=== PATIENT | male | born 1950 | race Caucasian/White ===

== ENCOUNTER 2018-07-02 13:11 | Inpatient (IN) | payer BC, OTHER ==
[~2018-07-02] VITALS: Ht 180.3 cm; Wt 112.4 kg
[~2018-07-02 13:11] MED LIST: ALT25 PO; ASPEC325 PO; ATOR-26 PO; CLOP1TAB15 PO; CPR500 PO; METO50TA16 PO; ZYVOX PO
[2018-07-02] MEDS ORDERED: ASPIRIN 81 MG CHEW PO STA (13:48)
[2018-07-02] MEDS ORDERED: NITROGLYCERIN 2% OINTMENT 30GM TUBE EXT ONE (14:00)
--- NOTE | 2018-07-02 14:10 | DIAGNOSTIC IMAGING REPORT ---
CHEST ONE VIEW PORTABLE CLINICAL HISTORY: Chest pain. COMPARISON STUDY: Chest radiograph September 12, 2010. FINDINGS: Lung volumes are at the lower limits of normal. There is no pneumothorax or pleural effusion. Moderate cardiomegaly is noted. There is no evidence for pulmonary edema. IMPRESSION: 1. No acute cardiomegaly findings. 2. Moderate cardiomegaly Electronically signed by: Kishan Yoon M.D. 07/02/2018 2:09 PM Dictated Date/Time: 07/02/2018 2:07 PM
[2018-07-02 14:15] LABS: HEMATOCRIT 43.3 % (42-52); HEMOGLOBIN 15.1 g/dL (14.0-18.0); MEAN CELL VOLUME 91.5 fL (80-100); MEAN CORPUSCULAR HEMOGLOBIN 31.9 pg (25-34); MEAN CORPUSCULAR HGB CONC 34.9 g/dl (32-36); MEAN PLATELET VOLUME 9.9 fL (7.4-10.4); PLATELET COUNT 176 K/uL (130-400); RED CELL DISTRIBUTION WIDTH CV 13.2 % (11.5-14.5); RED CELL DISTRIBUTION WIDTH SD 44.1 fL (36.4-46.3); WHITE BLOOD COUNT 6.58 K/uL (4.8-10.8)
[2018-07-02 14:19] LABS: PTT PATIENT 25.2 SECONDS (21.0-31.0)
[2018-07-02 14:32] LABS: ALBUMIN 3.6 gm/dl (3.4-5.0); ALKALINE PHOSPHATASE 79 U/L (45-117); ALT/SGPT 68 U/L (12-78); AST/SGOT 35 U/L (15-37); BLOOD UREA NITROGEN 19 mg/dl (7-18); CALCIUM 8.4 mg/dl (8.5-10.1); CARBON DIOXIDE 24 mmol/L (21-32); CREATININE 1.18 mg/dl (0.60-1.40); GLUCOSE 110 mg/dl (70-99); SODIUM 140 mmol/L (136-145); TOTAL PROTEIN 6.7 gm/dl (6.4-8.2)
--- NOTE | 2018-07-02 14:33 | EMERGENCY ROOM VISIT NOTE ---
History Report prepared by [place]: Corky Nava Under the Supervision of: Dr. Jose Thakur M.D. First contact with patient: 13:46 Chief Complaint: CHEST PAIN Stated Complaint: CHEST PAINS STARTED YESTERDAY History of Present Illness The patient is a 67 year old male who presents to the Emergency Room with complaints of resolved chest pressure/pain. The patient states that in April, around 2 months ago, he had 2 of his coronary stents opened. The third was felt okay. He has been doing well up until yesterday when he had some exertional chest pain a few times. The pain did resolve with rest. Today, about 1.5 hours ago, he was walking and developed pressure in his chest that was a 6/10. He felt pain down both arms. He was mildly short of breath, no sweating or nausea. He rested and about 15-20 minutes, the pain subsided. He did not use nitroglycerin. He presents to the ER for evaluation. He is now pain free. The patient has not had cough or congestion. He has been in baseline health up until yesterday. No urinary complaints, no diarrhea or vomiting. He does take aspirin and Brilinta. Of note, the patient did have a stress test about a week ago, he did well. Source of History: patient Onset: about 1.5 hours ago Position: chest Symptom Intensity: 6/10 at onset Quality: pressure Timing: resolved Modifying Factors (Relieving): rest Associated Symptoms: + SOB, No diaphoresis, No nausea Review of Systems ROS: Please see HPI. At least 10 systems in total were reviewed and otherwise negative. Past Medical & Surgical Medical Problems: (1) Heart disease (2) Kidney stone Has 3 coronary stents. No history of NM. Family History Cancer FH: heart disease FHx: lung disease Social History Smoking Status: Never Smoker Marital Status: Current/Historical Medications Scheduled Amlodipine (Norvasc), 2.5 MG PO DAILY Aspirin (Aspir-81), 1 TAB PO DAILY Atorvastatin (Lipitor), 20 MG PO DAILY B-Complex W/ Folic Acid (B Complex), 1 CAP PO DAILY Cholecalciferol (Vitamin D3), 1 TAB PO DAILY Ezetimibe (Zetia), 10 MG PO DAILY Famotidine (Pepcid), 20 MG PO DAILY Fish Oil ([place]-3), 1 CAP PO DAILY Multivitamin (Multivitamin), 1 TAB PO DAILY Ramipril (Ramipril), 1 CAP PO DAILY Ticagrelor (Brilinta), 1 TAB PO DAILY Allergies Coded Allergies: Erythromycin (Unverified Allergy, Unknown, UNKNOWN, 07/02/18) PT'S PARENTS WERE TOLD WHEN WHEN HE WAS 18M OLD THAT HE WASN'T TO TAKE MEDICATION Penicillins (Verified Allergy, Unknown, 07/02/18) Sulfa Drugs (Verified Allergy, Unknown, 07/02/18) Sulfamethoxazole (Verified Allergy, Unknown, 07/02/18) Tetracyclines (Verified Allergy, Unknown, 07/02/18) Physical Exam Vital Signs Date Time Temp Pulse Resp B/P (MAP) Pulse Ox O2 Delivery O2 Flow Rate FiO2 07/02/18 16:08 65 16 123/76 98 Room Air 07/02/18 13:33 62 07/02/18 13:32 95 Room Air 07/02/18 13:23 96 Room Air 07/02/18 13:15 36.8 78 20 159/93 96 Room Air Physical Exam GENERAL: Patient is in no acute distress. HEENT: No acute trauma, normocephalic atraumatic, mucous membranes moist, no nasal congestion, no scleral icterus. NECK: No stridor, no adenopathy, no meningismus, trachea is midline. LUNGS: Clear to auscultation bilaterally, no wheeze, no rhonchi, breath sounds equal. HEART: Without murmurs gallops or rubs, bradycardic. Regular rhythm. ABDOMEN: Soft, nontender, bowel sounds positive, no hernias, no peritonitis. EXTREMITIES: No cyanosis or edema, full range of motion of all the joints without pain or difficulty, no signs for acute trauma. NEUROLOGIC: Oriented x 3, no acute motor or sensory deficits, no focal weakness. SKIN: No rash, no jaundice, no diaphoresis. Medical Decision & Procedures ER Provider Diagnostic Interpretation: Radiology results as stated below per my review and radiologist interpretation: CHEST ONE VIEW PORTABLE CLINICAL HISTORY: Chest pain. COMPARISON STUDY: Chest radiograph September 12, 2010. FINDINGS: Lung volumes are at the lower limits of normal. There is no pneumothorax or pleural effusion. Moderate cardiomegaly is noted. There is no evidence for pulmonary edema. IMPRESSION: 1. No acute cardiomegaly findings. 2. Moderate cardiomegaly Electronically signed by: Kishan Yoon M.D. 07/02/2018 2:09 PM Dictated Date/Time: 07/02/2018 2:07 PM Laboratory Results 07/02/18 13:50 07/02/18 13:50 Test 07/02/18 13:50 Red Blood Count 4.73 M/uL (4.7-6.1) Mean Corpuscular Volume 91.5 fL (80-100) Mean Corpuscular Hemoglobin 31.9 pg (25-34) Mean Corpuscular Hemoglobin Concent 34.9 g/dl (32-36) RDW Standard Deviation 44.1 fL (36.4-46.3) RDW Coefficient of Variation 13.2 % (11.5-14.5) Mean Platelet Volume 9.9 fL (7.4-10.4) Prothrombin Time 10.1 SECONDS (9.0-12.0) Prothromb Time International Ratio 1.0 (0.9-1.1) Activated Partial Thromboplast Time 25.2 SECONDS (21.0-31.0) Partial Thromboplastin Ratio 1.0 Anion Gap 9.0 mmol/L (3-11) Est Creatinine Clear Calc Drug Dose 80.6 ml/min Estimated GFR () 74.6 Estimated GFR (Non- 64.4 BUN/Creatinine Ratio 15.9 (10-20) Calcium Level 8.4 mg/dl (8.5-10.1) Magnesium Level 2.0 mg/dl (1.8-2.4) Total Bilirubin 0.5 mg/dl (0.2-1) Aspartate Amino Transf (AST/SGOT) 35 U/L (15-37) Alanine Aminotransferase (ALT/SGPT) 68 U/L (12-78) Alkaline Phosphatase 79 U/L (45-117) Troponin I < 0.015 ng/ml (0-0.045) Total Protein 6.7 gm/dl (6.4-8.2) Albumin 3.6 gm/dl (3.4-5.0) Globulin 3.1 gm/dl (2.5-4.0) Albumin/Globulin Ratio 1.2 (0.9-2) Laboratory results reviewed by me. Medications Administered Medications (Trade) Dose Ordered Sig/Shanita Route Start Time Stop Time Status Last Admin Dose Admin Aspirin (Aspirin Chew) 324 mg NOW STAT PO 07/02/18 13:48 07/02/18 13:54 DC 07/02/18 14:05 324 MG Nitroglycerin (Nitroglycerin 2% Oint) 1 inch NOW ONCE EXT 07/02/18 14:00 07/02/18 14:01 DC 07/02/18 14:05 1 INCH Amlodipine Besylate (Norvasc Tab) 2.5 mg NOW ONCE PO 07/02/18 15:00 07/02/18 15:01 DC 07/02/18 15:04 2.5 MG Ticagrelor (Brilinta Tab) 90 mg NOW STAT PO 07/02/18 14:54 07/02/18 14:58 DC 07/02/18 15:04 90 MG ECG Per My Interpretation Indication: chest pain Rate (beats per minute): 59 Rhythm: sinus bradycardia Findings: other (Old inferior infarct, no ST elevation, no PVCs) ED Course 1347: The patient was evaluated in room A9B. A complete history and physical exam was performed. 1348: Ordered Aspirin 324 mg PO 1400: Ordered Nitroglycerin 1 inch EXT 1447: I consulted Dr. Ambrose - [facility] Hospitalist. He will reevaluate the patient for hospitalization. 1450: I updated the patient with current results and plan. He states that he feels comfortable. 1454: Ordered Ticagrelor 90 mg PO 1500: Ordered Norvasc 2.5 mg PO Medical Decision Differential diagnosis: angina, NM, anemia, aortic dissection, PE, pneumonia, musculoskeletal pain There is no leukocytosis or concerning anemia. No significant electrolyte abnormality, kidney failure or hepatitis. EKG shows a sinus bradycardia with an old inferior infarct, no acute ischemic change. Cardiac enzyme testing 1 is not consistent with acute cardiac injury. Chest x-ray does not show mediastinal widening, pneumonia or pneumothorax. On exam, the patient was resting comfortably. He had minimal to no pain. His symptoms had resolved earlier with rest. Patient was given Nitropaste and oral aspirin. As he had missed his Brilinta and Norvasc doses this morning, these were given orally. Patient requires a hospital stay for further cardiac workup. He presents with exertional chest pain which resolved with rest. He has a known coronary history and recently had a few of his stents opened via cath. I did speak to the patient and case management. The on-call hospitalist was consulted. Medication Reconcilliation Current Medication List: was personally reviewed by me Blood Pressure Screening Patient's blood pressure: Elevated blood pressure referred to hospitalist Consults Time Called: 1443 Consulting Physician: Dr. Halie Bundy [facility] Hospitalist Returned Call: [phone] Halie Bundy [facility] Hospitalist. He will reevaluate the patient for hospitalization. Impression Primary Impression: Precordial chest pain Scribe Attestation The scribe's documentation has been prepared under my direction and personally reviewed by me in its entirety. I confirm that the note above accurately reflects all work, treatment, procedures, and medical decision making performed by me. Departure Information Dispostion Being Evaluated By Hospitalist Referrals Loy Stoner M.D. (PCP) Patient Instructions My [facility]
[2018-07-02] MEDS ORDERED: TICAGRELOR 90 MG TAB PO STA (14:54)
[2018-07-02] MEDS ORDERED: AMLODIPINE BESYLATE 5 MG TAB PO ONE (15:00)
[2018-07-02] MEDS ORDERED: RAMI10CA PO ×2 (15:05→15:06)
[2018-07-02] MEDS ORDERED: EZET10TA63 PO (15:05)
[2018-07-02] MEDS ORDERED: TICA1TAB PO (15:05)
[2018-07-02] MEDS ORDERED: AMLO2.5T PO (15:05)
[2018-07-02] MEDS ORDERED: B-COTAB53 PO (15:05)
[2018-07-02] MEDS ORDERED: OMEG10007 PO (15:05)
[2018-07-02] MEDS ORDERED: ASPI-232 PO (15:05)
[2018-07-02] MEDS ORDERED: ATOR-22 PO (15:05)
[2018-07-02] MEDS ORDERED: FAMO20TA11 PO (15:05)
[2018-07-02] MEDS ORDERED: CHOL20007 PO (15:05)
[2018-07-02] MEDS ORDERED: MULT-506 PO (15:07)
[2018-07-02] MEDS ORDERED: POLYETHYLENE (MIRALAX) 17 GM PACK PO PRN (17:00)
[2018-07-02] MEDS ORDERED: ALUMINUM/MAGNESIUM/SIMETH (MAALOX MAX) 30 ML UDC PO PRN (17:00)
[2018-07-02] MEDS ORDERED: MAGNESIUM HYDROXIDE SUSP 30 ML UDC PO PRN (17:00)
[2018-07-02] MEDS ORDERED: ZOLPIDEM TARTRATE 5 MG TAB PO PRN (17:00)
[2018-07-02] MEDS ORDERED: MoRPHine SULFATE 2 MG/ML CARP IV PRN (17:00)
[2018-07-02] MEDS ORDERED: ACETAMINOPHEN 325 MG TAB PO PRN (17:00)
[2018-07-02] MEDS ORDERED: NITROGLYCERIN 0.4 MG SL PER TAB CHARGE SL PRN (17:00)
[2018-07-02] MEDS ORDERED: ONDANSETRON INJ 2 MG/ML 2 ML VIAL IV PRN (17:00)
--- NOTE | 2018-07-02 17:00 | History and Physical ---
History & Physical Date & Time of Service: Jul 02, 2018 at 16:55 Chief Complaint: Chest Pains Started Yesterday Primary Care Physician: Loy Stoner M.D. History of Present Illness Source: patient, hospital records, other 67 y/o M Hx CAD, HTN, HLD. Recent catheterization and balloon angioplasty of 90% LAD lesion. Presents with CP. The pain begins in his arms BL and then concentrates in his upper chest. He describes SOB, denies N/V, lightheadedness or diaphoresis. He has not previously had an GA, however, he states that the pain is identical to the pain he experienced prior to undergoing catheterization and confirming significant occlusive disease. Initial EKG and troponin do not support acute ischemia. The [place]. He had the above catheterization 05/01/18 and then states he had a normal chemical stress test 06/21. Past Medical/Surgical History 1) HTN 2) HLD 3) Nephrolithiasis 4) CAD Initial cath 2001 - LAD stent - additional cath 2011, 2012, 04/2018 - required in-stent balloon angioplasty of 90% proximal LAD lesion. No additional significant disease was demonstrated. Surgery: R knee arhtroscopy Family History Cancer FH: heart disease FHx: lung disease Social History Does not smoke or drink - resides in [place] Smoking Status: Never Smoker Marital Status: Housing status: lives with family Immunizations History of Influenza Vaccine: Yes Influenza Vaccine Date: Aug 13, 2010 History of Tetanus Vaccine?: Yes History of Pneumococcal: No History of Hepatitis B Vaccine: No Allergies Coded Allergies: Erythromycin (Unverified Allergy, Unknown, UNKNOWN, 07/02/18) PT'S PARENTS WERE TOLD WHEN WHEN HE WAS 18M OLD THAT HE WASN'T TO TAKE MEDICATION Penicillins (Verified Allergy, Unknown, 07/02/18) Sulfa Drugs (Verified Allergy, Unknown, 07/02/18) Sulfamethoxazole (Verified Allergy, Unknown, 07/02/18) Tetracyclines (Verified Allergy, Unknown, 07/02/18) Home Medications Scheduled Amlodipine (Norvasc), 2.5 MG PO DAILY Aspirin (Aspir-81), 1 TAB PO DAILY Atorvastatin (Lipitor), 20 MG PO DAILY B-Complex W/ Folic Acid (B Complex), 1 CAP PO DAILY Cholecalciferol (Vitamin D3), 1 TAB PO DAILY Ezetimibe (Zetia), 10 MG PO DAILY Famotidine (Pepcid), 20 MG PO DAILY Fish Oil ([place]-3), 1 CAP PO DAILY Multivitamin (Multivitamin), 1 TAB PO DAILY Ramipril (Ramipril), 1 CAP PO DAILY Ticagrelor (Brilinta), 1 TAB PO DAILY Review of Systems Constitutional: No fever, No chills, No sweats Eyes: No worsening of vision ENT: No hearing loss, No unusual epistaxis, No nasal symptoms Respiratory: No cough, No sputum, No wheezing Cardiovascular: + chest pain, No orthopnea, No PND Abdomen: No pain, No nausea, No vomiting Musculoskeletal: No joint pain Genitourinary - Male: No hematuria, No dysuria Neurologic: No memory loss, No paralysis, No weakness Psychiatric: No depression symptoms Endocrine: No fatigue Hematologic / Lymphatic: No abnormal bleeding/bruising Integumentary: No rash Allergic / Immunologic: No environmental allergies Physical Exam Vital Signs Date Time Temp Pulse Resp B/P (MAP) Pulse Ox O2 Delivery O2 Flow Rate FiO2 07/02/18 16:08 65 16 123/76 98 Room Air 07/02/18 13:33 62 07/02/18 13:32 95 Room Air 07/02/18 13:23 96 Room Air 07/02/18 13:15 36.8 78 20 159/93 96 Room Air General Appearance: WD/WN, no apparent distress Head: normocephalic Eyes: normal inspection ENT: normal ENT inspection, pharynx normal Neck: supple, thyroid normal Respiratory/Chest: chest non-tender, lungs clear, normal breath sounds Cardiovascular: regular rate, rhythm, normal peripheral pulses Abdomen/GI: normal bowel sounds, non tender, soft Back: normal inspection, no CVA tenderness Extremities/Musculoskelatal: normal inspection, no calf tenderness 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, no motor/sensory deficits, alert, oriented x 3 Skin: normal color Diagnostics Laboratory Results Results Past 24 Hours Test 07/02/18 13:50 Range/Units White Blood Count 6.58 4.8-10.8 K/uL Red Blood Count 4.73 4.7-6.1 M/uL Hemoglobin 15.1 14.0-18.0 g/dL Hematocrit 43.3 42-52 % Mean Corpuscular Volume 91.5 80-100 fL Mean Corpuscular Hemoglobin 31.9 25-34 pg Mean Corpuscular Hemoglobin Concent 34.9 32-36 g/dl RDW Standard Deviation 44.1 36.4-46.3 fL RDW Coefficient of Variation 13.2 11.5-14.5 % Platelet Count 176 130-400 K/uL Mean Platelet Volume 9.9 7.4-10.4 fL Prothrombin Time 10.1 9.0-12.0 SECONDS Prothromb Time International Ratio 1.0 0.9-1.1 Activated Partial Thromboplast Time 25.2 21.0-31.0 SECONDS Partial Thromboplastin Ratio 1.0 Sodium Level 140 136-145 mmol/L Potassium Level 4.0 3.5-5.1 mmol/L Chloride Level 107 98-107 mmol/L Carbon Dioxide Level 24 21-32 mmol/L Anion Gap 9.0 3-11 mmol/L Blood Urea Nitrogen 19 7-18 mg/dl Creatinine 1.18 0.60-1.40 mg/dl Est Creatinine Clear Calc Drug Dose 80.6 ml/min Estimated GFR () 74.6 Estimated GFR (Non- 64.4 BUN/Creatinine Ratio 15.9 10-20 Random Glucose 110 70-99 mg/dl Calcium Level 8.4 8.5-10.1 mg/dl Magnesium Level 2.0 1.8-2.4 mg/dl Total Bilirubin 0.5 0.2-1 mg/dl Aspartate Amino Transf (AST/SGOT) 35 15-37 U/L Alanine Aminotransferase (ALT/SGPT) 68 12-78 U/L Alkaline Phosphatase 79 45-117 U/L Troponin I < 0.015 0-0.045 ng/ml Total Protein 6.7 6.4-8.2 gm/dl Albumin 3.6 3.4-5.0 gm/dl Globulin 3.1 2.5-4.0 gm/dl Albumin/Globulin Ratio 1.2 0.9-2 Diagnostic Radiology CXR: moderate cardiomegaly - otherwise clear EKG NSR - evidence of prior inferior infarct - no acute change Impression Assessment and Plan 67 y/o M Hx CAD, HTN, HLD. Recent catheterization and balloon angioplasty of 90% LAD lesion. Presents with CP. The pain begins in his arms BL and then concentrates in his upper chest. He describes SOB, denies N/V, lightheadedness or diaphoresis. He has not previously had an GA, however, he states that the pain is identical to the pain he experienced prior to undergoing catheterization and confirming significant occlusive disease. Initial EKG and troponin do not support acute ischemia. The [place] is visiting from [place]. He had the above catheterization 05/01/18 and then states he had a normal chemical stress test 06/21. 1) CP - concerning for unstable angina - The pt would prefer to be worked up in [place]. I am not sure he would be safe travelling home as he has to drive back with a camper. He is assigned to telemetry overnight and we will consult cardiology therefore. 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 He will remain on ASA and Brilinta. 2) HTN - cont Ramipril, Norvasc 3) HLD - cont Statin therapy Full code - Lovenox prophylaxis Total time for this admit including review of labs, meds, imaging, records - discussion with pt and ER attending - 37 min Resuscitation Status VTE Prophylaxis Will order VTE Prophylaxis: Yes
[2018-07-02 18:03] VITALS: O2SAT 98; Ht 180.3 cm; Wt 112.4 kg
[2018-07-02 18:56] VITALS: O2SAT 98
[2018-07-02 19:07] VITALS: BP 156/78; PULSE 52; TEMP 36.5; O2SAT 95
[2018-07-02] MEDS ORDERED: IV FLUIDS COMPLETED PRN (20:45)
[2018-07-02] MEDS: ENOXAPARIN 40 MG/0.4 ML SYR SC SCH (21:09)
[2018-07-02] MEDS: TICAGRELOR 90 MG TAB PO SCH (21:09)
[2018-07-02 23:40] VITALS: BP 127/70; PULSE 47; TEMP 36.3; O2SAT 95
[2018-07-03 03:58] VITALS: BP 142/77; PULSE 48; TEMP 36.6; O2SAT 97
[2018-07-03 07:11] VITALS: BP 149/81; PULSE 49; TEMP 36.6; O2SAT 96
[2018-07-03] MEDS: AMLODIPINE BESYLATE 5 MG TAB PO SCH (08:02)
[2018-07-03] MEDS: ENALAPRIL MALEATE 10 MG TAB PO SCH (08:03)
[2018-07-03] MEDS: ASPIRIN 81 MG ECTAB PO SCH (08:04)
[2018-07-03] MEDS: TICAGRELOR 90 MG TAB PO SCH ×2 (08:04→21:06)
[2018-07-03] MEDS: FAMOTIDINE 20 MG TAB PO SCH (08:04)
[2018-07-03] MEDS ORDERED: TICAGRELOR 90 MG TAB PO SCH (09:00)
[2018-07-03] MEDS ORDERED: EZETIMIBE 10MG TAB PO SCH (09:00)
[2018-07-03] MEDS ORDERED: RAMIPRIL PO SCH (09:00)
[2018-07-03] MEDS ORDERED: ATORVASTATIN 20 MG TAB PO SCH (09:00)
[2018-07-03] MEDS ORDERED: NURSING VERBAL MED ORDER ONE (09:15)
[2018-07-03 11:38] VITALS: BP 147/89; PULSE 50; TEMP 36.4; O2SAT 95
--- NOTE | 2018-07-03 11:42 | Hospitalist Progress Note ---
Hospitalist Progress Note Date of Service Jul 03, 2018. (Monica Forde ., ROLANDA) Subjective Pt evaluation today including: conversation w/ patient, conversation w/ family , physical exam, chart review, lab review, review of studies, review of inpatient medication list Voiding: no voiding problems Mr. Mejia is not having any chest pain today. He had been experiencing pain while walking yesterday and a bit the day before with exertion that radiated down both arms. He also became sob. He had a stress test on 06/22 that he said he passed but feels "something is clogging up" since then. ROS Constitutional: no chills, aches, sweats or fever Respiratory: no sob,cough, sputum, or wheezing Cardiac: no chest pain, palpitations, edema, orthopnea or lightheadedness GI: no abdominal pain, nausea, vomiting, diarrhea or constipation : no dysuria or hesitancy Extremities: no joint pain or weakness Skin: no rash All other systems reviewed and negative (Monica Forde CRNP) Medications Medications Administered Medications (Trade) Dose Ordered Sig/Shanita Route Start Time Stop Time Status Last Admin Dose Admin Aspirin (Aspirin Chew) 324 mg NOW STAT PO 07/02/18 13:48 07/02/18 13:54 DC 07/02/18 14:05 324 MG Nitroglycerin (Nitroglycerin 2% Oint) 1 inch NOW ONCE EXT 07/02/18 14:00 07/02/18 14:01 DC 07/02/18 14:05 1 INCH Amlodipine Besylate (Norvasc Tab) 2.5 mg NOW ONCE PO 07/02/18 15:00 07/02/18 15:01 DC 07/02/18 15:04 2.5 MG Ticagrelor (Brilinta Tab) 90 mg NOW STAT PO 07/02/18 14:54 07/02/18 14:58 DC 07/02/18 15:04 90 MG Amlodipine Besylate (Norvasc Tab) 2.5 mg DAILY PO 07/03/18 09:00 08/02/18 08:59 07/03/18 08:02 2.5 MG Aspirin (Ecotrin Tab) 81 mg DAILY PO 07/03/18 09:00 08/02/18 08:59 07/03/18 08:04 81 MG Famotidine (Pepcid Tab) 20 mg DAILY PO 07/03/18 09:00 08/02/18 08:59 07/03/18 08:04 20 MG Enoxaparin Sodium (Lovenox Inj) 40 mg QPM SC 07/02/18 21:00 08/01/18 20:59 07/02/18 21:09 40 MG Enalapril Maleate (Vasotec Tab) 40 mg QAM PO 07/03/18 09:00 08/02/18 08:59 07/03/18 08:03 40 MG Ticagrelor (Brilinta Tab) 90 mg BID PO 07/02/18 21:00 08/01/18 20:59 07/03/18 08:04 90 MG (Monica Forde CRNP) Objective Vital Signs Date Time Temp Pulse Resp B/P (MAP) Pulse Ox O2 Delivery O2 Flow Rate FiO2 07/03/18 08:00 Room Air 07/03/18 07:11 36.6 49 18 149/81 (103) 96 Room Air 07/03/18 03:58 36.6 48 18 142/77 (98) 97 Room Air 07/02/18 23:40 36.3 47 18 127/70 (89) 95 07/02/18 20:02 Room Air 07/02/18 19:07 Room Air 07/02/18 19:07 36.5 52 18 156/78 (104) 95 Room Air 07/02/18 18:56 75 16 130/84 98 Room Air 07/02/18 18:06 71 16 120/79 98 Room Air 07/02/18 18:03 98 Room Air 07/02/18 16:08 65 16 123/76 98 Room Air 07/02/18 13:33 62 07/02/18 13:32 95 Room Air 07/02/18 13:23 96 Room Air 07/02/18 13:15 36.8 78 20 159/93 96 Room Air (Monica Forde CRNP) Physical Exam Notes: General: no distress Eyes: normal inspection, PERLL Respiratory: chest non tender, clear to auscultation, normal breath sounds, no respiratory distress, no accessory muscle use Cardiac: regular rate and rhythm, no rub or gallop, no murmur, no edema, no jvd GI/: active bowel sounds, no abd pain or tenderness, soft, non distended Extremities: normal range of motion, normal strength, non tender Neuro/Psych: alert and oriented x 3, normal mood and affect Skin: normal color, dry (Monica Forde CRNP) Laboratory Results Last 24 Hours Test 07/02/18 13:50 07/02/18 18:14 07/03/18 00:18 White Blood Count 6.58 K/uL Red Blood Count 4.73 M/uL Hemoglobin 15.1 g/dL Hematocrit 43.3 % Mean Corpuscular Volume 91.5 fL Mean Corpuscular Hemoglobin 31.9 pg Mean Corpuscular Hemoglobin Concent 34.9 g/dl RDW Standard Deviation 44.1 fL RDW Coefficient of Variation 13.2 % Platelet Count 176 K/uL Mean Platelet Volume 9.9 fL Prothrombin Time 10.1 SECONDS Prothromb Time International Ratio 1.0 Activated Partial Thromboplast Time 25.2 SECONDS Partial Thromboplastin Ratio 1.0 Sodium Level 140 mmol/L Potassium Level 4.0 mmol/L Chloride Level 107 mmol/L Carbon Dioxide Level 24 mmol/L Anion Gap 9.0 mmol/L Blood Urea Nitrogen 19 mg/dl Creatinine 1.18 mg/dl Est Creatinine Clear Calc Drug Dose 80.6 ml/min Estimated GFR () 74.6 Estimated GFR (Non- 64.4 BUN/Creatinine Ratio 15.9 Random Glucose 110 mg/dl Calcium Level 8.4 mg/dl Magnesium Level 2.0 mg/dl Total Bilirubin 0.5 mg/dl Aspartate Amino Transf (AST/SGOT) 35 U/L Alanine Aminotransferase (ALT/SGPT) 68 U/L Alkaline Phosphatase 79 U/L Troponin I < 0.015 ng/ml 0.029 ng/ml 0.021 ng/ml Total Protein 6.7 gm/dl Albumin 3.6 gm/dl Globulin 3.1 gm/dl Albumin/Globulin Ratio 1.2 (Monica Forde CRNP) Assessment and Plan Mr. Mejia is a 67 y/o man with recent catheterization and balloon angioplasty of 90% LAD lesion on 05/01/18. CP - concerning for unstable angina - patient is from [place] but is agreeable to workup here depending on what cardiology says. He has seen Dr. Buitrago here in the past as he is originally from the area. - continue ASA and Brilinta. - trops wnl x 3 - no events overnight, sb on the monitor - cardiology consulted HTN - cont Ramipril, Norvasc HLD - cont Statin, zetia therapy Full code - Lovenox prophylaxis (Monica Forde ., ROLANDA) [employer] Physician Supervision Note: I discussed with Monica Forde [employer]ER and agree with findings and plan as documented in the note. Any exceptions or clarifications are listed here: None Documented By: Brijesh Carrera (Briejsh Carrera M.D.)
[2018-07-03 15:12] VITALS: BP 139/73; PULSE 50; TEMP 36.5; O2SAT 95
--- NOTE | 2018-07-03 16:53 | CARDIOLOGY CONSULTATION ---
DATE OF CONSULTATION: 07/03/2018 REFERRING PHYSICIAN: Neil Ambrose MD HOSPITALIST: ROLANDA Rendon CONSULTATION: Nirmal Buitrago MD HISTORY OF PRESENT ILLNESS: The patient is a 67-year-old white male. He was previously followed by me when he lived in [place]. He and his moved permanently to [place] in 2012. He was last seen by me in the office setting on 04/26/2013. He has a longstanding history of coronary artery disease. Bare metal LAD stent 2000. This is a 3 x 13 mm stent. Admission to [facility] in [place] February 2012 with unstable angina. Cardiac enzymes at that time were negative for myocardial injury. Electrocardiogram without ischemic changes. Echocardiogram with normal LV wall motion. Subsequent cardiac catheterization revealed subtotal proximal LAD stenosis at the distal border of the stent. This was then followed by a 70-80% stenosis. YESSY 2 flow was present in the LAD. Subsequent deployment of a 2.5 x 16 mm Promus drug-eluting stent in the mid LAD. 2.75 x 16 mm Promus drug-eluting stent to the proximal LAD. Arising from the proximal LAD stenosis was a large diagonal. Kissing balloon angioplasty was performed to the LAD and the diagonal following stent deployment. Repeat cardiac catheterization at [facility] 05/07/2018 performed for unstable anginal symptoms. Catheterization revealed normal left main. Tubular 90% in-stent restenosis in the proximal LAD. YESSY 2 flow in the LAD. Mid LAD with 30% in-stent restenosis. Left circumflex reported to be without significant disease. Minor luminal irregularities. RCA with 30% proximal stenosis. The patient underwent intervention to the proximal LAD stenosis with noncompliant balloon inflation of a 3 x 15 mm balloon. He then underwent cutting balloon angioplasty to the restenotic lesion with a 3.5 x 10 mm [place] cutting balloon. Residual stenosis reported to be 10%. No complications. All of the patient's prior cardiac catheterization and interventional procedures have been performed via the right femoral artery. He has never had a radial artery access for his procedures. After his April procedure, he was switched from clopidogrel to Brilinta. The patient states that after his balloon procedure in April of 2018, he had resolution of his typical anginal symptoms. This is a retrosternal chest tightness which can radiate into both upper arms. His exercise tolerance and stamina returned to normal. He was able to ride a bike 8-9 miles. On 06/22/2018, he underwent a routine stress nuclear scan. He states that prior to the stress test, he was not experiencing any anginal symptoms. He reports that he only attained the maximum heart rate of 115 beats per minute. 85% of his maximum-predicted heart rate is 132 beats per minute. He was never notified of the nuclear results by his oceanic sciences professor. The patient states that after that stress test was performed, he began to develop recurrent exertionally precipitated chest tightness radiating to his upper arms. Since June 22, he has felt that he has had a decrease in his exercise tolerance and stamina. Two days ago, he had approximately 30-minute episode of exertionally precipitated chest tightness radiating to both upper arms. This episode lasted no more than 30 minutes. He does not take any sublingual nitroglycerin for it. Yesterday after walking approximately 1 block, he had the same type of symptoms. More intense than the day prior. Associated dyspnea. No associated diaphoresis or nausea. Bilateral upper arm aching pain accompanying the chest heaviness. Relieved after approximately 1 hour. On arrival to the Emergency Department, he had mild discomfort. It was completely relieved after topical nitrate applied. He was admitted to telemetry unit for observation. Since resolution of the discomfort in the Emergency Department, he has had no further anginal type symptoms. Other than the above complaints, he had been doing well from a cardiac standpoint. No palpitations, lightheadedness, syncope, orthopnea, PND, or peripheral edema. He denies any cerebrovascular or peripheral vascular complaints. No claudication type complaints. He has had no bleeding complaints on Brilinta. PAST MEDICAL HISTORY: 1. Coronary artery disease as above. 2. Dyslipidemia. 3. Sleep apnea. 4. History of nephrolithiasis. 5. History of ventral abdominal hernia. PAST SURGICAL HISTORY: 1. Status post hemorrhoidectomy. 2. Status post knee surgery. 3. Status post repair of abdominal ventral hernia with mesh. 4. Status post lumbar spinal surgery. ALLERGIES AND ADVERSE DRUG REACTIONS: PENICILLINS, SULFA CONTAINING DRUGS, ERYTHROMYCIN, TETRACYCLINE. MYALGIAS ON HIGHER DOSES OF STATINS. SOCIAL HISTORY: The patient is and lives with his . He is retired. He has never smoked cigarettes. Occasional use of alcohol. FAMILY HISTORY: No family history of coronary artery disease. CURRENT MEDICATIONS: Atorvastatin 20 mg daily, ezetimibe 10 mg daily, amlodipine 2.5 mg daily, aspirin 81 mg daily, famotidine 20 mg daily, enalapril 40 mg daily, Lovenox 40 mg subQ q.p.m., ticagrelor 90 mg p.o. b.i.d., and several p.r.n. medications. Review of systems: 1. Chronic low back pain. 2. As above. 3. No pulmonary,GI, or urinary complaints. 4. No bleeding complaints. 5. No HEENT complaints. 6. Mild fatigue over past few weeks. 7. 10 point review of systems otherwise negative. PHYSICAL EXAMINATION: GENERAL: The patient was sitting up in his bed. No distress. VITAL SIGNS: This afternoon, oral temperature 36.5, pulse 50, blood pressure 139/73, pulse oximetry on room air 95%. NECK: No jugular venous distention. Carotids 2/2 bilaterally. Normal upstroke. No bruits. LUNGS: Normal respiratory effort. No rales or wheezes. No rhonchi. HEART: PMI normal. No lifts or heaves. Regular rhythm. S1, S2 normal. No S3, S4. No murmur or rub. ABDOMEN: Soft and nontender. No palpable masses or organomegaly. No bruits. Normal bowel sounds. EXTREMITIES: No pretibial edema. No cyanosis or clubbing. PULSES: Radial, femoral, dorsalis pedis, posterior tibial pulses strongly palpable bilaterally. No femoral bruits. NEUROLOGICAL: Alert and oriented x3. Motor grossly intact. PSYCHIATRIC: Affect is normal. DATA: Electrocardiogram July 02 with sinus bradycardia, rate of 59 beats per minute. Inferior Q-waves. Studied on or before 11/12/2001. No significant change compared to electrocardiogram of 09/06/2010. Monitor reveals sinus bradycardia. Chest x-ray performed July 02 and reviewed by me reveals no evidence of heart failure or pneumonia. Electrocardiogram was also reviewed by me. Labs reveal WBC 6.58, hemoglobin 15.1, hematocrit 42.3, platelet count 176. INR 1.0. PTT 25.2. Metabolic profile - sodium 140, potassium 4.0, chloride 107, carbon dioxide 24, BUN 19, creatinine 1.18, random glucose 110. AST and ALT normal. Troponin I less than 0.015, 0.029, and 0.021. ASSESSMENT: 1. Status post multiple interventions to proximal LAD. Bare metal stent 2000. Promus drug-eluting stent in 2011. Balloon angioplasty and cutting balloon angioplasty April 2018. Suspect the patient has restenosis again in his proximal LAD. He did not undergo a stent procedure in April of 2018. He is having easily precipitated exertional anginal symptoms over the past few days. No symptoms at rest. Cardiac enzymes negative for myocardial injury. Electrocardiogram without any diagnostic ischemic changes. 2. Status post drug-eluting stent in mid LAD in 2011. This is a Promus stent. A cardiac catheterization April 2018 with 30% in-stent restenosis at the site of the mid LAD stent. 3. Mild atherosclerotic disease of the proximal RCA. Minor luminal irregularities reported in the left circumflex. These findings were on cardiac catheterization April 2018. 4. Previously normal left ventricular systolic function. 5. Abnormal electrocardiogram. Inferior Q-waves. However, normal LV wall motion in the inferior wall on prior imaging. 6. Coronary artery disease risk factors include dyslipidemia and hypertension. 7. INTOLERANT OF HIGHER DOSES OF STATINS. 8. Sinus bradycardia. He is not on any beta juan carlos therapy at this time. He had been on beta juan carlos therapy in the past. This was discontinued in approximately 2012 by his oceanic sciences professor in [place]. 9. No signs or symptoms of heart failure or arrhythmia. 10. No cerebrovascular or peripheral vascular complaints. 11. No bleeding complaints on dual antiplatelet therapy with aspirin and Brilinta. PLAN AND RECOMMENDATIONS: 1. It was recommended to the patient that he undergo repeat cardiac catheterization. He has already eaten breakfast and lunch today. Thus, he will need to wait to have the procedure performed. As it is coming on the weekend, the procedure will not be performed until Friday07/06/2018. Timely scheduled to be performed at 8 a.m. 2. N.p.o. after 12:00 midnight the night prior to the procedure. 3. We will start IV fluids the evening of July 05. 4. Add long-acting nitrate therapy to his regimen. We will prescribe isosorbide mononitrate 60 mg daily a.m. 5. Continue amlodipine and enalapril. 6. Beta juan carlos therapy contraindicated at this time secondary to low resting heart rate. If his heart rate increases, could initiate low-dose beta juan carlos therapy with metoprolol tartrate 12.5 mg b.i.d. 7. Certainly if the patient develops evidence of an acute myocardial infarction, he would then need to undergo emergency cardiac catheterization. 8. Continue aspirin and ticagrelor. 9. Continue atorvastatin. 10. Extensive discussion was held with the patient and his by me regarding the possibilities that he has severe restenosis in his LAD. Therapeutic options for this could include a repeat stent deployment with a different type of drug-eluting stent. However, he would then have 3 stents in his proximal LAD (provided at the restenosis is in his proximal LAD). The other option would be a CABG surgery. He is amenable to this. We will need to assess the severity of any restenotic lesion. Also, would need to exclude any new coronary artery stenosis. Based on results of catheterization, would then need to be decided whether it was safe for him to travel back to [place] to have the surgery performed versus being transferred to a tertiary center in [place] for the surgery. It was extensively discussed with the patient and his that this would depend upon the angiographic findings. 11. I will discuss the patient's case with Dr. Daryl Elias. I will be asking him to perform the patient's cardiac catheterization procedure on July 06. 12. I would be away until Friday07/06/2018. Dr. Trenton Agee will be covering for me until then. The above assessment and recommendations were discussed with the patient, his , and Ms. oMnica Forde. Thank you for asking me to see this patient in cardiology consultation. MAYCO
[2018-07-03 19:13] VITALS: BP 151/77; PULSE 53; TEMP 36.6; O2SAT 95
[2018-07-03] MEDS: EZETIMIBE 10MG TAB PO SCH (21:06)
[2018-07-03] MEDS: ATORVASTATIN 20 MG TAB PO SCH (21:06)
[2018-07-03] MEDS: ENOXAPARIN 40 MG/0.4 ML SYR SC SCH (21:07)
[2018-07-03 23:27] VITALS: BP 139/75; PULSE 52; TEMP 37; O2SAT 96
[2018-07-04 03:06] VITALS: BP 135/75; PULSE 45; TEMP 36.9; O2SAT 95
[2018-07-04 07:02] VITALS: BP 117/76; PULSE 49; TEMP 36.7; O2SAT 98
[2018-07-04] MEDS: ENALAPRIL MALEATE 10 MG TAB PO SCH (08:22)
[2018-07-04] MEDS: TICAGRELOR 90 MG TAB PO SCH ×2 (08:22→21:11)
[2018-07-04] MEDS: ASPIRIN 81 MG ECTAB PO SCH (08:22)
[2018-07-04] MEDS: FAMOTIDINE 20 MG TAB PO SCH (08:23)
[2018-07-04] MEDS: AMLODIPINE BESYLATE 5 MG TAB PO SCH (08:23)
--- NOTE | 2018-07-04 10:37 | Cardiology Follow-Up ---
Subjective General Date of Service: Jul 04, 2018. Pt evaluation today including: conversation w/ patient, conversation w/ family , chart review, lab review, review of studies History of Present Illness The patient is a 67 year old male Allergies Coded Allergies: Erythromycin (Unverified Allergy, Unknown, UNKNOWN, 07/02/18) PT'S PARENTS WERE TOLD WHEN WHEN HE WAS 18M OLD THAT HE WASN'T TO TAKE MEDICATION Penicillins (Verified Allergy, Unknown, 07/02/18) Sulfa Drugs (Verified Allergy, Unknown, 07/02/18) Sulfamethoxazole (Verified Allergy, Unknown, 07/02/18) Tetracyclines (Verified Allergy, Unknown, 07/02/18) Social History Smoking Status: Current Some Day Smoker Hx Tobacco Use In Past Year?: Yes (cigars....rarely) Hx Alcohol Use - Type And Amou: Yes (beer....rarley) Hx Substance Use - Type And Am: No Problem List Medical Problems: (1) Precordial chest pain Status: Acute Review of Systems Respiratory: No cough, No shortness of breath, No dyspnea at rest Cardiac: No chest pain, No edema, No palpitations Additional ROS Details: No resting angina Physical Exam Vital Signs Last Vital Signs Documentation Date Time Temp Pulse Resp B/P (MAP) Pulse Ox O2 Delivery O2 Flow Rate FiO2 07/04/18 08:00 Room Air 07/04/18 07:02 36.7 49 17 117/76 (90) 98 Physical Exam Constitutional: General Apperance: heathly-appearing Level of Distress: NAD Lungs: Respiratory effort: no dyspnea Auscultation: breath sounds normal, no wheezing, no rales/crackles, no rhonchi Cardiovascular: Heart Auscultation: RRR, no murmurs, no rubs, no gallops Abdomen: Bowel Sounds: normal Inspection & Palpation: soft, non-distended, no tenderness, guarding & rebound Extremities: no edema Assessment and Plan Assessment and Plan 1. Status post multiple interventions to proximal LAD. Bare metal stent 2000. Promus drug-eluting stent in 2011. Balloon angioplasty and cutting balloon angioplasty April 2018. Suspect the patient has restenosis again in his proximal LAD. 1B. [place]--- No symptoms at rest. Cardiac enzymes negative for myocardial injury. Electrocardiogram without any diagnostic ischemic changes. 2. Status post drug-eluting stent in mid LAD in 2011. This is a Promus stent. A cardiac catheterization April 2018 with 30% in-stent restenosis at the site of the mid LAD stent. 3. Mild atherosclerotic disease of the proximal RCA. Minor luminal irregularities reported in the left circumflex. These findings were on cardiac catheterization April 2018. 4. Previously normal left ventricular systolic function--normal carotid upstrokes 5. Abnormal electrocardiogram. Inferior Q-waves. However, normal LV wall motion in the inferior wall on prior imaging. 7. INTOLERANT OF HIGHER DOSES OF STATINS. 8. Sinus bradycardia. He is not on any beta juan carlos therapy at this time. He had been on beta juan carlos therapy in the past. This was discontinued in approximately 2012 by his asset accountant in [place]. 9. No signs or symptoms of heart failure or arrhythmia. 10. No cerebrovascular or peripheral vascular complaints. 11. No bleeding complaints on dual antiplatelet therapy with aspirin and Brilinta. Stable on current meds No resting angina Plan cath Friday--if restenosis (expected) options include COOK to LAD or consider brachytherapy at [facility] NPO after MN Friday for cath Friday No room for BB's secondary to HR
[2018-07-04 11:30] VITALS: BP 128/82; PULSE 63; TEMP 36.5; O2SAT 95
--- NOTE | 2018-07-04 12:38 | Hospitalist Progress Note ---
Hospitalist Progress Note Date of Service Jul 04, 2018. (Monica Forde ., ROLANDA) Subjective Pt evaluation today including: conversation w/ patient, conversation w/ family , physical exam, chart review, lab review, review of inpatient medication list Voiding: no voiding problems Mr. Mejia has no complaints. No events on the monitor overnight ROS Constitutional: no chills, aches, sweats or fever Respiratory: no sob,cough, sputum, or wheezing Cardiac: no chest pain, palpitations, edema, orthopnea or lightheadedness GI: no abdominal pain, nausea, vomiting, diarrhea or constipation : no dysuria or hesitancy Extremities: no joint pain or weakness Skin: no rash All other systems reviewed and negative (Monica Forde CRNP) Medications Medications Administered Medications (Trade) Dose Ordered Sig/Shanita Route Start Time Stop Time Status Last Admin Dose Admin Aspirin (Aspirin Chew) 324 mg NOW STAT PO 07/02/18 13:48 07/02/18 13:54 DC 07/02/18 14:05 324 MG Nitroglycerin (Nitroglycerin 2% Oint) 1 inch NOW ONCE EXT 07/02/18 14:00 07/02/18 14:01 DC 07/02/18 14:05 1 INCH Amlodipine Besylate (Norvasc Tab) 2.5 mg NOW ONCE PO 07/02/18 15:00 07/02/18 15:01 DC 07/02/18 15:04 2.5 MG Ticagrelor (Brilinta Tab) 90 mg NOW STAT PO 07/02/18 14:54 07/02/18 14:58 DC 07/02/18 15:04 90 MG Amlodipine Besylate (Norvasc Tab) 2.5 mg DAILY PO 07/03/18 09:00 08/02/18 08:59 07/04/18 08:23 2.5 MG Aspirin (Ecotrin Tab) 81 mg DAILY PO 07/03/18 09:00 08/02/18 08:59 07/04/18 08:22 81 MG Famotidine (Pepcid Tab) 20 mg DAILY PO 07/03/18 09:00 08/02/18 08:59 07/04/18 08:23 20 MG Enoxaparin Sodium (Lovenox Inj) 40 mg QPM SC 07/02/18 21:00 08/01/18 20:59 07/03/18 21:07 40 MG Enalapril Maleate (Vasotec Tab) 40 mg QAM PO 07/03/18 09:00 08/02/18 08:59 07/04/18 08:22 40 MG Ticagrelor (Brilinta Tab) 90 mg BID PO 07/02/18 21:00 08/01/18 20:59 07/04/18 08:22 90 MG Atorvastatin Calcium (Lipitor Tab) 20 mg QPM PO 07/03/18 21:00 08/02/18 20:59 07/03/18 21:06 20 MG EZETIMIBE (Zetia Tab) 10 mg QPM PO 07/03/18 21:00 08/02/18 20:59 07/03/18 21:06 10 MG (Monica Forde CRNP) Objective Vital Signs Date Time Temp Pulse Resp B/P (MAP) Pulse Ox O2 Delivery O2 Flow Rate FiO2 07/04/18 11:30 36.5 63 18 128/82 (97) 95 Room Air 07/04/18 08:00 Room Air 07/04/18 07:02 36.7 49 17 117/76 (90) 98 Room Air 07/04/18 03:06 36.9 45 16 135/75 (95) 95 Room Air 07/03/18 23:27 37.0 52 18 139/75 (96) 96 Room Air 07/03/18 20:00 Room Air 07/03/18 19:13 36.6 53 18 151/77 (101) 95 Room Air 07/03/18 15:12 36.5 50 18 139/73 (95) 95 Room Air (Monica Forde CRNP) Physical Exam Notes: General: no distress Eyes: normal inspection, PERLL Respiratory: chest non tender, clear to auscultation, normal breath sounds, no respiratory distress, no accessory muscle use Cardiac: regular rate and rhythm, no rub or gallop, no murmur, no edema, no jvd GI/: active bowel sounds, no abd pain or tenderness, soft, non distended Extremities: normal range of motion, normal strength, non tender Neuro/Psych: alert and oriented x 3, normal mood and affect Skin: normal color, dry (Monica Forde CRNP) Assessment and Plan Mr. Mejia is a 67 y/o man with recent catheterization and balloon angioplasty of 90% LAD lesion on 05/01/18. CP - concerning for unstable angina - patient is from [place] but is agreeable to workup here - will have cath on Friday - may end up needing to transfer to [place] for CABG depending on outcome of cath - continue ASA and Brilinta. 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 Any exceptions or clarifications are listed here: None Pt is awaiting risk stratification testing that will be perfromed at its earliest time 07/06 Documented By: Brijesh Carrera (Brijesh Carrera M.D.)
[2018-07-04 15:14] VITALS: BP 127/73; PULSE 68; TEMP 36.5; O2SAT 95
[2018-07-04 19:37] VITALS: BP 134/72; PULSE 55; TEMP 37; O2SAT 93
[2018-07-04] MEDS: ATORVASTATIN 20 MG TAB PO SCH (21:11)
[2018-07-04] MEDS: ENOXAPARIN 40 MG/0.4 ML SYR SC SCH (21:11)
[2018-07-04] MEDS: EZETIMIBE 10MG TAB PO SCH (21:11)
[2018-07-05] VITALS (7 sets, daily range): BP systolic 120–152; BP diastolic 69–87; PULSE 45–69; TEMP 36.4–37.1; O2SAT 93–97
[2018-07-05 06:39] LABS: HEMOGLOBIN 15.9 g/dL (14.0-18.0); MEAN CELL VOLUME 91.6 fL (80-100); MEAN CORPUSCULAR HEMOGLOBIN 31.7 pg (25-34); MEAN CORPUSCULAR HGB CONC 34.6 g/dl (32-36); MEAN PLATELET VOLUME 9.6 fL (7.4-10.4); PLATELET COUNT 161 K/uL (130-400); RED CELL DISTRIBUTION WIDTH CV 13.4 % (11.5-14.5); RED CELL DISTRIBUTION WIDTH SD 44.7 fL (36.4-46.3)
[2018-07-05 07:14] LABS: CALCIUM 8.2 mg/dl (8.5-10.1); CREATININE 1.19 mg/dl (0.60-1.40); POTASSIUM 4.3 mmol/L (3.5-5.1)
[2018-07-05] MEDS: AMLODIPINE BESYLATE 5 MG TAB PO SCH (07:36)
[2018-07-05] MEDS: TICAGRELOR 90 MG TAB PO SCH ×2 (07:36→21:18)
[2018-07-05] MEDS: FAMOTIDINE 20 MG TAB PO SCH (07:36)
[2018-07-05] MEDS: ENALAPRIL MALEATE 10 MG TAB PO SCH (07:36)
[2018-07-05] MEDS: ASPIRIN 81 MG ECTAB PO SCH (07:36)
--- NOTE | 2018-07-05 11:18 | Hospitalist Progress Note ---
Hospitalist Progress Note Date of Service Jul 05, 2018. (Monica Forde ., ROLANDA) Subjective Pt evaluation today including: conversation w/ patient, conversation w/ family , physical exam, chart review, lab review, review of inpatient medication list Voiding: no voiding problems Mr. Mejia has no complaints. He has not had any chest pain or sob this weekend ROS Constitutional: no chills, aches, sweats or fever Respiratory: no sob,cough, sputum, or wheezing Cardiac: no chest pain, palpitations, edema, orthopnea or lightheadedness GI: no abdominal pain, nausea, vomiting, diarrhea or constipation : no dysuria or hesitancy Extremities: no joint pain or weakness Skin: no rash All other systems reviewed and negative (Monica Forde .ROLANDA) Medications Medications Administered Medications (Trade) Dose Ordered Sig/Shanita Route Start Time Stop Time Status Last Admin Dose Admin Aspirin (Aspirin Chew) 324 mg NOW STAT PO 07/02/18 13:48 07/02/18 13:54 DC 07/02/18 14:05 324 MG Nitroglycerin (Nitroglycerin 2% Oint) 1 inch NOW ONCE EXT 07/02/18 14:00 07/02/18 14:01 DC 07/02/18 14:05 1 INCH Amlodipine Besylate (Norvasc Tab) 2.5 mg NOW ONCE PO 07/02/18 15:00 07/02/18 15:01 DC 07/02/18 15:04 2.5 MG Ticagrelor (Brilinta Tab) 90 mg NOW STAT PO 07/02/18 14:54 07/02/18 14:58 DC 07/02/18 15:04 90 MG Amlodipine Besylate (Norvasc Tab) 2.5 mg DAILY PO 07/03/18 09:00 08/02/18 08:59 07/05/18 07:36 2.5 MG Aspirin (Ecotrin Tab) 81 mg DAILY PO 07/03/18 09:00 08/02/18 08:59 07/05/18 07:36 81 MG Famotidine (Pepcid Tab) 20 mg DAILY PO 07/03/18 09:00 08/02/18 08:59 07/05/18 07:36 20 MG Enoxaparin Sodium (Lovenox Inj) 40 mg QPM SC 07/02/18 21:00 08/01/18 20:59 07/04/18 21:11 40 MG Enalapril Maleate (Vasotec Tab) 40 mg QAM PO 07/03/18 09:00 08/02/18 08:59 07/05/18 07:36 40 MG Ticagrelor (Brilinta Tab) 90 mg BID PO 07/02/18 21:00 08/01/18 20:59 07/05/18 07:36 90 MG Atorvastatin Calcium (Lipitor Tab) 20 mg QPM PO 07/03/18 21:00 08/02/18 20:59 07/04/18 21:11 20 MG EZETIMIBE (Zetia Tab) 10 mg QPM PO 07/03/18 21:00 08/02/18 20:59 07/04/18 21:11 10 MG (Monica Forde CRNP) Objective Vital Signs Date Time Temp Pulse Resp B/P (MAP) Pulse Ox O2 Delivery O2 Flow Rate FiO2 07/05/18 08:00 Room Air 07/05/18 07:31 36.7 46 20 137/79 (98) 96 Room Air 07/05/18 03:58 36.7 45 17 120/78 (92) 95 Room Air 07/05/18 00:03 36.6 48 18 120/69 (86) 96 CPAP 07/04/18 20:00 Room Air 07/04/18 19:37 37.0 55 18 134/72 (92) 93 Room Air 07/04/18 15:14 36.5 68 20 127/73 (91) 95 Room Air 07/04/18 11:30 36.5 63 18 128/82 (97) 95 Room Air (Monica Forde CRNP) Physical Exam Notes: General: no distress Eyes: normal inspection, PERLL Respiratory: chest non tender, clear to auscultation, normal breath sounds, no respiratory distress, no accessory muscle use Cardiac: regular rate and rhythm, no rub or gallop, no murmur, no edema, no jvd GI/: active bowel sounds, no abd pain or tenderness, soft, non distended Extremities: normal range of motion, normal strength, non tender Neuro/Psych: alert and oriented x 3, normal mood and affect Skin: normal color, dry (Monica Forde CRNP) Laboratory Results Last 24 Hours Test 07/05/18 06:22 07/05/18 06:23 Sodium Level 139 mmol/L Potassium Level 4.3 mmol/L Chloride Level 107 mmol/L Carbon Dioxide Level 26 mmol/L Anion Gap 6.0 mmol/L Blood Urea Nitrogen 18 mg/dl Creatinine 1.19 mg/dl Est Creatinine Clear Calc Drug Dose 78.6 ml/min Estimated GFR () 73.9 Estimated GFR (Non- 63.7 BUN/Creatinine Ratio 15.1 Random Glucose 101 mg/dl Calcium Level 8.2 mg/dl White Blood Count 8.00 K/uL Red Blood Count 5.02 M/uL Hemoglobin 15.9 g/dL Hematocrit 46.0 % Mean Corpuscular Volume 91.6 fL Mean Corpuscular Hemoglobin 31.7 pg Mean Corpuscular Hemoglobin Concent 34.6 g/dl RDW Standard Deviation 44.7 fL RDW Coefficient of Variation 13.4 % Platelet Count 161 K/uL Mean Platelet Volume 9.6 fL (Monica Forde CRNP) Assessment and Plan Mr. Mejia is a 67 y/o man with recent catheterization and balloon angioplasty of 90% LAD lesion on 05/01/18. CP - concerning for unstable angina - patient is from [place] but is agreeable to workup here - will have cath on Friday - may end up needing to transfer to [place] for CABG depending on outcome of cath - continue ASA and Brilinta. 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 Any exceptions or clarifications are listed here: None Patient has some minor bradycardia with sleeping awaiting risk stratification cardiology testing this week Documented By: Brijesh Carrera (Brijesh Carrera M.D.)
[2018-07-05] MEDS: ENOXAPARIN 40 MG/0.4 ML SYR SC SCH (21:18)
[2018-07-05] MEDS: EZETIMIBE 10MG TAB PO SCH (21:18)
[2018-07-05] MEDS: ATORVASTATIN 20 MG TAB PO SCH (21:18)
[2018-07-05] MEDS: SODIUM CHLORIDE 0.9% 1000ML 1,000 ML IV SCH (22:02)
[2018-07-06] VITALS (14 sets, daily range): BP systolic 128–148; BP diastolic 63–87; PULSE 46–64; TEMP 36.4–36.9; O2SAT 94–97
[2018-07-06] MEDS: SODIUM CHLORIDE 0.9% 1000ML 1,000 ML IV SCH (07:23)
[2018-07-06 07:35] LABS: HEMATOCRIT 45.8 % (42-52); HEMOGLOBIN 15.8 g/dL (14.0-18.0); MEAN CELL VOLUME 92.2 fL (80-100); MEAN CORPUSCULAR HEMOGLOBIN 31.8 pg (25-34); MEAN CORPUSCULAR HGB CONC 34.5 g/dl (32-36); MEAN PLATELET VOLUME 9.9 fL (7.4-10.4); PLATELET COUNT 174 K/uL (130-400); RED CELL DISTRIBUTION WIDTH CV 13.4 % (11.5-14.5); RED CELL DISTRIBUTION WIDTH SD 45.1 fL (36.4-46.3); WHITE BLOOD COUNT 6.63 K/uL (4.8-10.8)
[2018-07-06 08:14] LABS: CALCIUM 8.6 mg/dl (8.5-10.1); CREATININE 1.08 mg/dl (0.60-1.40); POTASSIUM 4.4 mmol/L (3.5-5.1)
[2018-07-06] MEDS: ASPIRIN 81 MG ECTAB PO SCH (09:00)
[2018-07-06] MEDS: TICAGRELOR 90 MG TAB PO SCH (09:00)
[2018-07-06] MEDS ORDERED: MIDAZOLAM HCL 1 MG/ML 2ML VIAL ONE (12:00)
[2018-07-06] MEDS ORDERED: FENTANYL CITRATE INJ 50 MCG/1 ML 2 ML VIAL ONE (12:00)
[2018-07-06] MEDS ORDERED: HEPARIN SOD (PORCINE) 1000 UNIT/ML 10 ML VIAL ONE (12:00)
[2018-07-06] MEDS ORDERED: NiCARDipine HCL INJ 2.5 MG/ML 10 ML AMP ONE (12:01)
[2018-07-06] MEDS ORDERED: NITROGLYCERIN/D5W 100MCG/ML 20ML SYR ONE (12:01)
[2018-07-06] MEDS ORDERED: TICAGRELOR 90 MG TAB PO ONE (12:38)
[2018-07-06] MEDS ORDERED: ASPIRIN 81 MG CHEW ONE (12:38)
--- NOTE | 2018-07-06 13:26 | Post Sedation Assessment ---
Post Sedation Assessment General Date of Sedation Jul 06, 2018. Vital Signs: Vital Signs Past 12 Hours Date Time Temp Pulse Resp B/P (MAP) Pulse Ox O2 Delivery O2 Flow Rate FiO2 07/06/18 11:02 36.5 47 20 138/77 (97) 97 Room Air 07/06/18 08:00 Room Air 07/06/18 07:03 36.6 49 18 137/84 (101) 96 Room Air 07/06/18 03:26 36.5 46 17 137/75 (95) 96 Room Air Post Procedure Recovery Score Activity: (2) Moves 4 extremities * Respiration: (2) Deep breath/cough Circulation: (2) +/-20% PreAnes Value Consciousness: (2) Fully Awake Oxygen Saturation: (2) > 92% On Room Air Post Anesthesia Score: 10 Discharge Sedation Level of Care: Fast Track Phase II Post Sedation Plan On clinical assessment, the patient appears to have tolerated the sedation without complications. Patient is recovering as anticipated. Patient will continue to be monitored by nursing and may be discharged when sedation discharge criteria are met per below protocol. Upon Completions of procedure and additional 15 minutes continue every 5 minute vital signs and the P.A.R. score; then discharge to a Phase I or Fast Track to Phase II per the following guidelines: * Discharge Patient to appropriate Phase II area if PAR is 8 or greater or return to pre- procedure baseline. The post - procedure orders will be as directed. * If PAR score is less than 8 or not return to pre-procedure baseline then patient will follow Phase I monitoring till PAR is reached for Phase II. The Phase I may be done in procedure room or may call to secure a Phase I area. * If naloxone or flumazenil are used for reversal, hold in Phase I for an additional 60 -120 minutes before discharge to Phase II. Please call the Sedation Physician to re-evaluate and complete post-note for discharge to Phase II area. Do NOT discharge from procedure sedation or Phase 1 until post- sedation evaluation note is complete by procedure /sedation MD Sedation Discharge Instructions to be given to the patient at discharge to home.
--- NOTE | 2018-07-06 13:26 | Pre Sedation Assessment ---
Pre Sedation Assessment General Date of Sedation: Jul 06, 2018. Vital Signs Past 12 Hours Date Time Temp Pulse Resp B/P (MAP) Pulse Ox O2 Delivery O2 Flow Rate FiO2 07/06/18 11:02 36.5 47 20 138/77 (97) 97 Room Air 07/06/18 08:00 Room Air 07/06/18 07:03 36.6 49 18 137/84 (101) 96 Room Air 07/06/18 03:26 36.5 46 17 137/75 (95) 96 Room Air Review Cardiovascular: regular rate, rhythm, no edema Lungs: chest non-tender, lungs clear Pre-Sedation Airway Assessment Smoking Status: Current Some Day Smoker Hx of Sleep Apnea: No Hx of difficult intubation: No Short Thick Neck: No Thyro-mental Distance: > 3 Finger Breadths Oral Cavity: WNL Mallampati Classification: Class III ASA Classification: Class III NPO Status Date of Last Intake of Fluids: Jul 05, 2018 Time of Last Intake of Fluids: 2359 Date of Last Intake of Solids: Jul 05, 2018 Time of Last Intake of Solids: 2099 Procedure Planning Contraindications for Sedation: None Current Medications Reviewed: Yes Notes The planned sedation has been discussed with the patient. Informed Consent was obtained. I have identified the patient, determined the appropriateness of sedation and have assessed the patient immediately prior to the procedure. All medicine(s) and interventions are by my order.
--- NOTE | 2018-07-06 13:40 | Cardiac Catheterization ---
Procedure Note Procedure Date Jul 06, 2018. Pre-Procedure Diagnosis Angina AUC Score 7 Post-Procedure Diagnosis Severe CAD, Normal Intracardiac Pressures Procedure(s) Performed Coronary Angiography, Left Heart Cath Manager Investigations Curt Family Dinner Service Specialist(s) Janice Estimated Blood Loss 10 Medication(s) Fentanyl, Heparin, Nicardipine, Versed, Lidocaine 1% Summary of Findings Indication: Angina; CCS class III Access: 6Fr slender right radial artery Catheters: [place]; JL3.5 Findings: LM - Luminal irregularities. LAD - 99% in-stent restenosis in mid LAD stent; TIMI2/competitive flow in distal LAD Circumflex - Large caliber vessel, luminal irregularities. 30-40% stenosis in distal circumflex after take off of large OM2. RCA - Dominant, diffuse 50-60% mid segment disease; R-PDA without significant disease. Right to left collaterals from acute marginal. LVEDP - 4 Arterial Closure: TR Band Summary: 1. Multivessel coronary artery disease - 99% mid LAD in-stent restenosis with distal vessel filling in part via right to left collaterals. - 50-60% diffuse mid RCA disease 2. Normal intracardiac filling pressure Recommendations: With LAD in-stent restenosis following multiple prior PCI recommend evaluation by cardiac surgery for CABG In interim titrate antianginals and continue ASCVD risk factor modification Hemodynamics Rest Ao: 147/64/97 Final Ao: 155/66/100 LV: 158/4 Recommendations Medical therapy and/or Counseling, CABG Specimens None Radiation Exposure (mGy) 1605 Contrast (mls) 50 Fluids (cc crystalloids) 70 Drains none Anesthesia moderate Procedural Complication(s) None Disposition PCU ACC Data Cardiac Status Clinical evaluation leading to the procedure CAD Presntation: Unstable angina Anginal Classification: CCS III Heart Failure: No, NYHA Class: CCS I Cardiogenic Shock w/in 24Hrs: No Cardiac Arrest w/in 24Hrs: No Imaging studies past 6 months: Yes Stress studies past 6 months: Yes Standard Exercise Stress Test: Yes - Indeterminant Closure Device Percutaneous Entry Location: Radial Closure Device: Radial Band Recommendations: CABG Intraprocedure Events Significant Dissection: No Perforation: No
--- NOTE | 2018-07-06 14:30 | Progress Note ---
Subjective Date of Service: Jul 06, 2018. Subjective Pt evaluation today including: conversation w/ patient, conversation w/ family , physical exam, chart review, lab review, review of studies, conversation w/ sales support consultant, review of inpatient medication list Pleasant, conversational, no complaint, denies chest pain Problem List Medical Problems: (1) Precordial chest pain Status: Acute Review of Systems Constitutional: No fever, No chills, No sweats, No weight loss, No weakness, No fatigue, No problem reported Eyes: No worsening of vision, No eye pain, No redness, No discharge, No diplopia ENT: No hearing loss, No unusual epistaxis, No nasal symptoms, No sore throat, No tinnitus, No dental problems, No trouble swallowing Respiratory: No cough, No sputum, No wheezing, No shortness of breath, No dyspnea on exertion, No dyspnea at rest, No hemoptysis Cardiac: No chest pain, No orthopnea, No PND, No edema, No claudication, No palpitations Abdomen: No pain, No nausea, No vomiting, No diarrhea, No constipation Musculoskeletal: No joint pain, No muscle pain, No swelling, No calf pain Male : No dysuria, No urinary frequency, No incontinence, No nocturia more than once/night, No slowing stream, No hematuria Neurologic: No memory loss, No paralysis, No weakness, No numbness/tingling, No vertigo, No balance problems Psychiatric: No depression symptoms, No anhedonism, No anxiety, No insomnia, No substance abuse Heme: No abnormal bleeding/bruising, No clotting problems, No swollen lymph nodes, No night sweats Endo: No fatigue, No excessive thirst, No excessive urination Skin: No rash, No itch, No new/changing skin lesions, No color change, No bleeding Objective Vital Signs Date Time Temp Pulse Resp B/P (MAP) Pulse Ox O2 Delivery O2 Flow Rate FiO2 07/06/18 14:15 36.6 47 20 136/87 (103) 97 Room Air 07/06/18 13:59 36.5 47 20 138/77 (97) 97 Room Air 07/06/18 13:40 56 18 142/77 (98) 96 Room Air 07/06/18 13:26 36.8 49 18 142/77 (98) 96 Room Air 07/06/18 13:22 52 14 143/72 (95) 98 Room Air 07/06/18 13:17 52 14 146/77 (100) 98 Room Air 07/06/18 13:12 50 14 149/77 (101) 98 Room Air 07/06/18 13:07 51 14 153/81 (105) 98 Room Air 07/06/18 11:02 36.5 47 20 138/77 (97) 97 Room Air 07/06/18 08:00 Room Air 07/06/18 07:03 36.6 49 18 137/84 (101) 96 Room Air 07/06/18 03:26 36.5 46 17 137/75 (95) 96 Room Air 07/05/18 23:41 36.9 51 18 129/72 (91) 96 Room Air 07/05/18 20:01 Room Air 07/05/18 19:04 37.1 56 18 138/74 (95) 93 Room Air 07/05/18 15:22 36.8 67 18 122/77 (92) 94 Room Air Physical Exam General Appearance: WD/WN, no apparent distress, + obese Eyes: normal inspection, PERRL, EOMI, sclerae normal ENT: normal ENT inspection, hearing grossly normal, pharynx normal Neck: supple, no adenopathy, thyroid normal, no JVD, no carotid bruits, trachea midline Respiratory/Chest: chest non-tender, lungs clear, normal breath sounds, no respiratory distress, no accessory muscle use Cardiovascular: regular rate, rhythm, no edema, no gallop, no JVD, no murmur Abdomen: normal bowel sounds, non tender, soft, no organomegaly, no pulsatile mass Extremities: normal range of motion, non-tender, normal inspection, no pedal edema, no calf tenderness, normal capillary refill, pelvis stable Neurologic/Psychiatric: 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, no motor/sensory deficits, alert, normal mood/affect, oriented x 3 Skin: normal color, warm/dry, no rash Lymphatic: no adenopathy Laboratory Results Last 24 Hours Test 07/06/18 07:26 White Blood Count 6.63 K/uL Red Blood Count 4.97 M/uL Hemoglobin 15.8 g/dL Hematocrit 45.8 % Mean Corpuscular Volume 92.2 fL Mean Corpuscular Hemoglobin 31.8 pg Mean Corpuscular Hemoglobin Concent 34.5 g/dl RDW Standard Deviation 45.1 fL RDW Coefficient of Variation 13.4 % Platelet Count 174 K/uL Mean Platelet Volume 9.9 fL Sodium Level 140 mmol/L Potassium Level 4.4 mmol/L Chloride Level 107 mmol/L Carbon Dioxide Level 26 mmol/L Anion Gap 8.0 mmol/L Blood Urea Nitrogen 16 mg/dl Creatinine 1.08 mg/dl Est Creatinine Clear Calc Drug Dose 86.9 ml/min Estimated GFR () 83.0 Estimated GFR (Non- 71.6 BUN/Creatinine Ratio 15.1 Random Glucose 103 mg/dl Calcium Level 8.6 mg/dl Assessment and Plan 67 y/o man admitted because of chest pain on July 02, 2018 with recent catheterization and balloon angioplasty of 90% LAD lesion on 05/01/18. CP, possible unstable angina Hx CAD, HTN, HLD. Recent catheterization and balloon angioplasty of 90% LAD lesion. from [place] but is agreeable to workup here Pending [facility] continue ASA and Brilinta, trops wnl x 3 HTN - cont Ramipril, Norvasc HLD - cont Statin, zetia therapy Will discuss with cardiology for the discharge plan Full code - Lovenox prophylaxis Continued [facility] stay due to: multiple IV medications needed Discharge planning: home
[2018-07-06] MEDS: FAMOTIDINE 20 MG TAB PO SCH (14:36)
[2018-07-06] MEDS: AMLODIPINE BESYLATE 5 MG TAB PO SCH (14:36)
[2018-07-06] MEDS: ENALAPRIL MALEATE 10 MG TAB PO SCH (14:37)
[2018-07-06] MEDS ORDERED: NURSING VERBAL MED ORDER ONE (16:00)
[2018-07-06] MEDS ORDERED: ISOSORBIDE MONONITRATE 30 MG TABCR PO ONE (16:15)
[2018-07-06] MEDS ORDERED: NTRSLP4 SL (17:04)
[2018-07-06] MEDS ORDERED: VST10 PO (17:04)
--- NOTE | 2018-07-06 17:04 | Discharge Instructions ---
Discharge Instructions Date of Service Jul 06, 2018. Admission Reason for Admission: Precordial Chest Pain Discharge Discharge Diagnosis / Problem: Severe CAD, unstable angina Discharge Goals Goal(s): Decrease discomfort, Improve function, Increase independence, Improve disease control, Improve nutritional status, Learn about illness, Diagnostic testing, Therapeutic intervention, Prevent Disease Progression, Specific goals Activity Recommendations Activity Limitations: per Instructions/Follow-up section . Instructions / Follow-Up Instructions / Follow-Up you have Severe CAD, Hx CAD, HTN, HLD. Recent catheterization and balloon angioplasty of 90% LAD lesion. Cardiology sending you to [facility] for CABG Please follow-up cardiac surgery instructions upon discharge from [facility] Follow up with your primary care physician as instructed Current Hospital Diet Patient's current hospital diet: AHA Diet (Heart Healthy) Discharge Diet Recommended Diet: AHA Diet (Heart Healthy) Procedures Procedures Performed: Left heart cath, Pending Studies Studies pending at discharge: no Medical Emergencies . Who to Call and When: Medical Emergencies: If at any time you feel your situation is an emergency, please call 911 immediately. . Non-Emergent Contact Non-Emergency issues call your: Primary Care Provider, Ambulance Officer . . "Provider Documentation" section prepared by Adalberto Kelsey. .
--- NOTE | 2018-07-06 17:11 | Discharge Summary ---
Discharge Summary Date of Service Jul 06, 2018. Discharge Summary Admission Date: Jul 03, 2018 at 16:53 Discharge Date: Jul 06, 2018 Discharge Disposition: Acute care facility Principal Diagnosis: Severe CAD, Problems/Secondary Diagnoses: Possible unstable angina Immunizations: Have You Had Influenza Vaccine: Yes Influenza Vaccine Date: Aug 13, 2010 History of Tetanus Vaccine?: Yes History of Pneumococcal: No History of Hepatitis B Vaccine: No Procedures: Cardiac cath was done Consultations: Head Of Acquisitions Medication Reconciliation New Medications: Enalapril Maleate (Enalapril Maleate) 10 Mg Tab 40 MG PO QAM for 1 Day, #4 TAB Nitroglycerin (Nitrostat) 0.4 Mg/1 Tab Subl 0.4 MG SL UD PRN for Chest Pain for 1 Day Continued Medications: Amlodipine (Norvasc) 2.5 Mg Tab 2.5 MG PO DAILY, TAB Aspirin (Aspir-81) 81 Mg Tab 1 TAB PO DAILY for 90 Days, #90 TAB 3 Refills Atorvastatin (Lipitor) 20 Mg Tab 20 MG PO DAILY, TAB B-Complex W/ Folic Acid (B Complex) 1 Tab Tab 1 CAP PO DAILY Cholecalciferol (Vitamin D3) 2,000 Unit Tab 1 TAB PO DAILY for 90 Days, #90 TAB 3 Refills Ezetimibe (Zetia) 10 Mg Tab 10 MG PO DAILY, TAB Famotidine (Pepcid) 20 Mg Tab 20 MG PO DAILY, TAB Fish Oil (Wood[place]-3) 1 Ea Cap 1 CAP PO DAILY, CAP Multivitamin (Multivitamin) Tab 1 TAB PO DAILY, TAB Ramipril (Ramipril) 10 Mg Cap 1 CAP PO DAILY for 90 Days, #90 CAP 3 Refills Ticagrelor (Brilinta) 90 Mg Tab 1 TAB PO BID Discharge Exam S/P cardiac cath, doing well, eating meal, no complaint Review of Systems: Constitutional: No fever, No chills, No sweats, No weight loss, No weakness , No fatigue, No problem reported Eyes: No worsening of vision, No eye pain, No redness, No discharge, No diplopia, No problem reported Respiratory: No cough, No sputum, No wheezing, No shortness of breath, No dyspnea on exertion, No dyspnea at rest, No hemoptysis, No problem reported Cardiovascular: No chest pain, No orthopnea, No PND, No edema, No claudication, No palpitations, No problem reported Abdomen: No pain, No nausea, No vomiting, No diarrhea, No constipation, No GI bleeding, No problem reported Musculoskeletal: No joint pain, No muscle pain, No swelling, No calf pain, No problem reported Genitourinary - Male: No hematuria, No dysuria, No urinary frequency, No urinary urgency, No urinary hesitancy, No urinary retention, No urinary incontinence, No penile discharge, No lesions, No impotence, No problem reported Neurologic: No memory loss, No paralysis, No weakness, No numbness/tingling , No vertigo, No balance problems, No problem reported Psychiatric: No depression symptoms, No anhedonism, No anxiety, No insomnia , No substance abuse, No problem reported Endocrine: No fatigue, No excessive thirst, No excessive urination, No problem reported Hematologic / Lymphatic: No abnormal bleeding/bruising, No clotting problems , No swollen lymph nodes, No night sweats, No problem reported Integumentary: No rash, No itch, No new/changing skin lesions, No color change, No bleeding, No problem reported Physical Exam: General Appearance: WD/WN, + obese Eyes: normal inspection, PERRL, EOMI ENT: normal ENT inspection, hearing grossly normal, TMs normal Neck: supple, no adenopathy, thyroid normal Respiratory/Chest: chest non-tender, lungs clear, normal breath sounds Cardiovascular: regular rate, rhythm, no edema, no gallop, no JVD Abdomen / GI: normal bowel sounds, non tender, soft, no organomegaly, no pulsatile mass Extremities: normal inspection, no calf tenderness, no pedal edema Neurologic/Psychiatric: 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 CP, possible unstable angina Hx CAD, HTN, HLD. Recent catheterization and balloon angioplasty of 90% LAD lesion. from [place] but is agreeable to workup here Cardiac cath done, this morning, senior technical business analyst recommended to transfer to [facility] cardiac surgeon service for possible CABG, discussed with patient risk and benefit, consent signed, continue ASA and Brilinta, trops wnl x 3 HTN - cont Ramipril, Norvasc HLD - cont Statin, zetia therapy Will discuss with cardiology for the discharge plan Full code - Lovenox prophylaxis Discharge instruction you have Severe CAD, Hx CAD, HTN, HLD. Recent catheterization and balloon angioplasty of 90% LAD lesion. Cardiology sending you to [facility] for CABG Please follow-up cardiac surgery instructions upon discharge from [facility] Follow up with your primary care physician as instructed Total Time Spent: Greater than 30 minutes This includes examination of the patient, discharge planning, medication reconciliation, and communication with other providers. Discharge Instructions Please refer to the electronic Patient Visit Report (Discharge Instructions) for additional information. Additional Copies To Daryl Elias MD; Nirmal Buitrago M.D.
--- NOTE | 2018-07-06 17:19 | PROGRESS NOTE ---
DATE: 07/06/2018 SUBJECTIVE: The patient was seen by me this morning in his telemetry room. He is also again seen by me this afternoon following cardiac catheterization. Since admission, he has had no further complaints of chest or upper arm discomfort. No other anginal-type symptoms. No dyspnea at rest or with his activities. No orthopnea or PND. No palpitations, lightheadedness, syncope, or peripheral edema. No pulmonary, GI, urinary complaints. No cerebrovascular or peripheral vascular complaints. No bleeding complaints. Post-procedure, no complaints of bleeding at his right radial catheterization site. No complaints of right hand pain. No anginal or anginal equivalent-type symptoms. CURRENT MEDICATIONS: Atorvastatin 20 mg daily, Zetia 10 mg daily, amlodipine 2.5 mg daily, aspirin 81 mg daily, famotidine 20 mg daily, enalapril 40 mg daily, enoxaparin 40 mg subcutaneous q.p.m., ticagrelor 90 mg p.o. b.i.d., and several p.r.n. medications. ALLERGIES AND ADVERSE DRUG REACTIONS: INTOLERANT OF HIGHER DOSES OF STATINS. Other allergies and adverse drug reactions include ERYTHROMYCIN, PENICILLIN, SULFA DRUGS, AND TETRACYCLINE. Monitor reveals sinus bradycardia. PHYSICAL EXAMINATION: VITAL SIGNS: Post-catheterization revealed oral temperature is 36.9, pulse 54, blood pressure 129/63, pulse oximetry 97% on room air. GENERAL APPEARANCE: Shows him to be in no distress. NECK: No jugular venous distension. Carotids 2/2 bilaterally. Normal upstroke. No bruits. LUNGS: Normal respiratory effort. Clear. No rales or wheezes. HEART: Regular rate and rhythm. S1, S2 normal. No S3 or S4. No murmur or rub. ABDOMEN: Soft. Nontender. No palpable mass or hepatomegaly. No bruits. EXTREMITIES: Right radial catheterization site without bleeding. No evidence of arterial insufficiency, right hand. No pretibial edema. No cyanosis or clubbing. NEUROLOGIC: Alert and oriented x3. Motor grossly intact. PSYCHIATRIC: Affect is normal. DATA: Labs today with WBC 6.63, hemoglobin 15.8, hematocrit 45.8, platelet count is 174. Metabolic profile: Sodium 140, potassium 4.4, chloride 107, carbon dioxide 26, BUN 16, creatinine 1.08, random glucose 103. Peak troponin I on this admission 0.029. Cardiac catheterization performed today by Dr. Daryl Elias. Performed via the right radial artery. Images reviewed by me. Right dominant circulation. Subtotal early mid in-stent LAD stenosis. YESSY 2 flow into the distal LAD. Competitive flow from collaterals from the right coronary artery. RCA with 60% mid segment stenosis. Right to left collateral flow to the LAD. ASSESSMENT: 1. Admission with unstable angina. He easily precipitated after walking only approximately 1 block. Cardiac enzymes negative for myocardial injury. Electrocardiogram without ischemic changes. 2. Severe in-stent restenosis in left anterior descending. A large diagonal rises just distal to the occlusion. He also has at least a moderate mid right carotid artery stenosis. 3. No ventricular arrhythmias. 4. Sinus bradycardia without any negative chronotrope medications. 5. No signs or symptoms of heart failure. 6. No vascular complications post-cardiac catheterization today. PLAN: 1. The patient had already decided that he wanted to undergo CABG surgery if he had any significant in-stent restenosis. This was present on his catheterization today. I also believe that this is the patient's best revascularization option of moving forward. I spoke to Dr. Abelino Fitzgerald at [facility] in [place]. He has graciously accepted the patient in transfer. The patient will be transferred when a bed is available. Surgery will be performed on an inpatient basis after this hospital to hospital transfer. 2. I will notify the patient's hospitalist, Dr. Adalberto Kelsey of the plans for transfer. The patient can be transferred by [facility] ambulance.
== END 2018-07-06 19:35 | disposition short-term general hospital (02) | DRG 287 ==
LOC: C.EDB 13:13 → C.2T 16:55 → EDBEDREQ 17:46 → ENRESERV 18:12 → OBSVTOIN 07-03 16:53
PROVIDERS: ADMIT Internal Medicine; ATTEND Hospitalist
PROC: B2111ZZ Fluoroscopy of Multiple Coronary Arteries using Low Osmolar Contrast (ICD-10-PCS; principal; 2018-07-06 10:44)
PROC: 4A023N7 Measurement of Cardiac Sampling and Pressure, Left Heart, Percutaneous Approach (ICD-10-PCS; principal; 2018-07-06 10:44)
DX: I25.110 Atherosclerotic heart disease of native coronary artery with unstable angina pectoris (principal); T82.855A Stenosis of coronary artery stent, initial encounter; Y71.2 Prosthetic and other implants, materials and accessory cardiovascular devices associated with adverse incidents; I10 Essential (primary) hypertension; R00.1 Bradycardia, unspecified; E78.5 Hyperlipidemia, unspecified; G47.33 Obstructive sleep apnea (adult) (pediatric); Z95.5 Presence of coronary angioplasty implant and graft; Z79.02 Long term (current) use of antithrombotics/antiplatelets; Z79.82 Long term (current) use of aspirin; Z79.899 Other long term (current) drug therapy; Z88.0 Allergy status to penicillin; Z88.1 Allergy status to other antibiotic agents; Z88.2 Allergy status to sulfonamides